=== PATIENT | male | born 1995 | race American Indian/Alaskan Native ===

== ENCOUNTER 2018-05-08 21:44 | Emergency (ER) | payer OTHER ==
[2018-05-08 21:57] VITALS: BP 135/81; PULSE 62; TEMP 98.1; O2SAT 98
[2018-05-08] MEDS ORDERED: Acetaminophen-Codeine 300/30 mg Tab PO STA (22:37)
[2018-05-08] MEDS ORDERED: Acetaminophen-Codeine 300/30 mg Tab PO ONE (22:40)
--- NOTE | 2018-05-08 22:57 | C.PDOC ---
History Of Present Illness 23 year old male presents to the ED c/o right lower dental pain. Patient reports he is overdue to a root canal, patient has not followed up yet to have it done. Patient states he has been taking OTC Advil and Aleve with no improvement. Patient denies fever, chills, headache, injury, fall, trauma, rash, facial swelling. Time Seen by Provider: 05/08/18 22:05 Chief Complaint (Nursing): Dental Pain History Per: Patient History/Exam Limitations: no limitations Onset/Duration Of Symptoms: Days Current Symptoms Are (Timing): Still Present Quality: Positive for: "Pain" Recent travel outside of the [place]: No Additional History Per: Patient Past Medical History Reviewed: Historical Data, Nursing Documentation, Vital Signs Vital Signs: Last Vital Signs Temp 98.1 F 05/08/18 21:53 Pulse 62 05/08/18 21:53 Resp 18 05/08/18 21:53 BP 135/81 05/08/18 21:53 Pulse Ox 98 05/08/18 21:53 - Medical History PMH: No Chronic Diseases Surgical History: No Surg Hx Family History: States: Unknown Family Hx - Social History Hx Alcohol Use: No Hx Substance Use: No - Immunization History Hx Tetanus Toxoid Vaccination: No Hx Influenza Vaccination: No Hx Pneumococcal Vaccination: No Review Of Systems Constitutional: Negative for: Fever, Chills ENT: Positive for: Mouth Pain. Negative for: Mouth Swelling, Throat Pain, Throat Swelling Gastrointestinal: Negative for: Nausea, Vomiting, Abdominal Pain Musculoskeletal: Negative for: Neck Pain Skin: Negative for: Rash Neurological: Negative for: Headache, Dizziness Physical Exam - Physical Exam Appears: Non-toxic, No Acute Distress Skin: Normal Color, Warm, Dry Head: Atraumatic, Normacephalic Eye(s): bilateral: Normal Inspection Ear(s): Bilateral: Normal Oral Mucosa: Moist Tongue: No Swelling Lips: No Swelling Teeth: Caries (right lower molar), Tender To Palpation (posterior right lower moalr) Throat: Normal, No Erythema, No Exudate Neck: Normal ROM, Supple Extremity: Normal ROM Neurological/Psych: Oriented x3, Normal Speech, Normal Cognition Gait: Steady ED Course And Treatment O2 Sat by Pulse Oximetry: 98 (ON RA) Pulse Ox Interpretation: Normal Progress Note: Plan: - tylenol/codeine 2 tab PO. - Penicillin 500 mg PO. On reassessment, patient is resting comfortably, and is in no acute distress. Patient was instructed to follow up with physician/clinic in 1-2 days for further evaluation. 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 - Scribe Statement The provider has reviewed the documentation as recorded by the Scribe Ron Saavedra All medical record entries made by the Erinibdima were at my direction and personally dictated by me. I have reviewed the chart and agree that the record accurately reflects my personal performance of the history, physical exam, medical decision making, and the department course for this patient. I have also personally directed, reviewed, and agree with the discharge instructions and disposition.
[2018-05-08 23:00] VITALS: RESP 20
== END 2018-05-08 22:59 | disposition home or self-care (01) ==
LOC: C.ER 21:44
DX: K02.9 Dental caries, unspecified (principal)